=== PATIENT | female | born 1995 | race American Indian/Alaskan Native ===

== ENCOUNTER 2017-11-10 11:26 | Emergency (ER) | payer OTHER ==
[2017-11-10 14:30] LABS: HCG Qualitative,Urine Negative (Negative)
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
[2017-11-10] MEDS ORDERED: MOTRIN PO ONE (14:41)
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
[2017-11-10 15:33] VITALS: BP 114/68
== END 2017-11-10 16:15 | disposition home or self-care (01) ==
LOC: ED 11:26
DX: M25.551 Pain in right hip (principal); M25.561 Pain in right knee; M79.1 Myalgia; V89.2XXA Person injured in unspecified motor-vehicle accident, traffic, initial encounter; Y93.89 Activity, other specified; Y99.8 Other external cause status; Y92.488 Other paved roadways as the place of occurrence of the external cause
CPT/HCPCS: 81025; 99283

== ENCOUNTER 2018-11-23 19:52 | Emergency (ER) | payer OTHER ==
[2018-11-23 20:06] VITALS: BP 120/77
[2018-11-23] MEDS ORDERED: PERCOCET 5/325 PO ONE (22:05)
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
== END 2018-11-23 22:46 | disposition home or self-care (01) ==
LOC: ED 19:52
DX: K08.89 Other specified disorders of teeth and supporting structures (principal)
CPT/HCPCS: 99282